=== PATIENT | male | born 1960 | race Caucasian/White ===

== ENCOUNTER 2021-02-13 08:29 | Outpatient (CLI) | payer OTHER, SELFPAY | END 2021-02-13 08:30 | LOC: ANHCOVIDVC 08:30 | PROVIDERS: PCP Family Medicine | DX: Z23 Encounter for immunization (principal) | CPT/HCPCS: 0001A; 91300 ==

== ENCOUNTER 2021-03-06 08:34 | Outpatient (CLI) | payer SELFPAY | END 2021-03-06 08:35 | disposition home or self-care (01) | LOC: ANHCOVIDVC 08:34 | PROVIDERS: PCP Family Medicine | DX: Z23 Encounter for immunization (principal) | CPT/HCPCS: 0002A; 91300 ==

== ENCOUNTER 2024-01-17 15:12 | Emergency (ER) | payer MEDICARE, SELFPAY ==
--- NOTE | ~2024-01-17 | XR_ITS ---
EXAMINATION: XR chest 1V portable Exam Date/Time: 01/17/2024 15:35 CRANE ENGINEER HISTORY: htn WITH LEFT ARM NUMBNESS AND TINGLING INTERMITTENT Comparison: CT chest 11/16/2018. RESULT: Lines, tubes, and devices: None. Lungs and pleura: Clear. Cardiomediastinal silhouette: Unremarkable. Other: No acute osseous or upper abdominal finding. IMPRESSION: No acute cardiopulmonary process. Reviewed, dictated and finalized at location K. E ENGINEER
--- NOTE | ~2024-01-17 | CT_ITS ---
EXAMINATION: CTA brain carotid DATE: 01/17/2024 17:01 INDICATION: neuro deficit TECHNIQUE: Computed tomographic angiography (CTA) of the head was performed without and with 100 mL O mnipaque-350 intravenous contrast. CTA of the neck was performed with intravenous contrast. Automated exposure control and iterative reconstruction technique were employed. The dose-length product was 1 821.09 mGy-cm. Maximum intensity projection and volume rendered 3D-reconstructions were created by ramila cole technologist on a separate workstation. COMPARISON: None. FINDINGS: CT BRAIN: No acute large vessel infarct, intracranial hemorrhage, mass, or hydrocephalus. CTA HEAD: No large vessel occlusion, aneurysm, high flow vascular malformation, nidus or extravasation. Symmetr ic parenchymal enhancement. Patent cerebral veins. CTA NECK: Aortic arch and proximal great vessels: Minimal arch calcifications. 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 Right common carotid, carotid bifurcation, and internal carotid artery: Calcified and noncalcified pl aque at the bifurcation.There is 0% stenosis of the proximal right internal carotid artery relative t o normal distal artery lumen diameter (NASCET criteria). Vertebral arteries: No significant plaque or stenosis. Other findings: None. IMPRESSION: No large vessel intracranial occlusion, high-grade intracranial stenosis, or aneurysm. No carotid or vertebral artery occlusion or dissection. Ulcerative plaque at the left carotid bifurcation, with 63% stenosis. Reviewed, dictated and finalized at location K. ICAL STAFF ANESTHESIOLOGIST IMPRESSION: No large vessel intracranial occlusion, high-grade intracranial stenosis, or an eurysm. No carotid or vertebral artery occlusion or dissection. Ulcerative plaque at the left carotid bifurcation, with 63% stenosis.
[2024-01-17 15:21] VITALS: BP 207/135; PULSE 96; RESP 20; TEMP 36.4; O2SAT 99
--- NOTE | 2024-01-17 15:26 | ECG_ITS ---
Measurements Intervals [place] Rate: 90 P: 44 MT: 168 QRS: -29 QRSD: 119 T: -7 QT: 348 QTc: 426 Interpretive Statements SINUS RHYTHM LEFT ANTERIOR SUPERIOR HEMIBLOCK INCOMPLETE RIGHT BUNDLE BRANCH BLOCK [90+ ms QRS DURATION, TERMINAL R IN V1/V2, 40+ ms S IN I/aVL/V4/V5/V6] ABNORMAL ECG NO PREVIOUS ECG AVAILABLE FOR COMPARISON Electronically Signed On 01-18-2024 8:11:34 PRICE CHECKER by Travis Ochoa M.D.
[2024-01-17 15:48] LABS: Basophils Absolute Auto 0.1 K/mm3 (0.0-0.1); Basophils Percent Auto 1.2 % (0.2-1.2); Eosinophils Absolute Auto 0.1 K/mm3 (0-0.3); Eosinophils Percent Auto 1.5 % (0-4.4); Hematocrit 51.6 % (42.0-52.0); Hemoglobin 17.3 g/dL (14.0-18.0); Immature Granulocyte Absolute 0.02 K/mm3 (0.00-0.031); Immature Granulocyte Percent A 0.3 % (0-0.5); Lymphocytes Absolute Auto 1.03 K/mm3 (0.9-3.2); Lymphocytes Percent Auto 17.1 % (18.3-44.2); Mean Corpuscular HGB Conc 33.5 g/dl (32-36); Mean Corpuscular Hemoglobin 31.2 pg (26-34); Monocytes Absolute Auto 0.9 K/mm3 (0.1-0.6); Monocytes Percent Auto 14.8 % (2.6-8.5); Neutrophils Absolute Auto 3.9 K/mm3 (1.3-6.7); Neutrophils Percent Auto 65.1 % (45.5-73.1); Platelet Count Result 161 k/mm3 (150-375); Red Blood Count 5.55 M/mm3 (4.6-6.20)
[2024-01-17 16:00] VITALS: BP 162/115; PULSE 87; RESP 18; O2SAT 98
[2024-01-17 16:00] LABS: Alanine Aminotransferase 39 U/L (6-50); Albumin Level 4.4 g/dL (3.5-5.1); Alkaline Phosphatase 86 U/L (38-126); Anion Gap 6 mmol/L (8-16); Aspartate Amino Transferase 51 U/L (17-59); Bilirubin,Total 0.8 mg/dL (0.2-1.3); Blood Urea Nitrogen 15 mg/dL (9-20); Calcium 9.3 mg/dL (8.4-10.2); Carbon Dioxide 25 mmol/L (22-30); Chloride 106 mmol/L (98-107); Estimated CRCL calculation 70 ml/min; Estimated Glomerular Filt Rate > 60; Glucose 86 mg/dL (65-110); Lipase 85 U/L (23-300); Sodium 137 mmol/L (137-145)
--- NOTE | 2024-01-17 16:02 | ED.NEUROSD ---
HPI - Neuro Symptoms/Deficit General Chief Complaint: Neuro Symptoms/Deficit Stated Complaint: neuro sx Time Seen by Provider: 01/17/24 16:00 History of Present Illness HPI Narrative: Patient is a 63-year-old male with history of HTN, not on medications, here with headache, left sided tingling and high blood pressure. He notes that about a week ago he began having symptoms like his blood pressure was high. He describes it as feeling a pressure-like sensation in his head when he bends over. Last Saturday he began having symptoms of left arm, left buttock pins and needles sensation. He notes that it occurred 4-5 times that day and yesterday had 2 similar episodes. Currently he is just complaining of a mild headache. No pins and needle sensation are present. He denies any current chest pain. He spoke with his primary care doctor's office Dr. Harris today and they recommended he come into the emergency department for evaluation and workup. He notes that he had been treated for hypertension several years ago, he claims that and the blood pressure medications that he had been placed on were working. He discontinued them and manage his diet and has had good blood pressure control since. Related Data Allergies Allergy/AdvReac Type Severity Reaction Status Date / Time No Known Allergies Allergy Verified 01/17/24 15:12 Review of Systems Review of Systems: All systems reviewed & are unremarkable except as noted in HPI and below PMFSH Family History Family History (Updated 11/04/18 @ 13:45 by DOCTOR UNKNOWN) Father Diabetes mellitus Mother Patient's mother is in good health Sibling Patient's sister is in good health Social History Social History Smoking status: Never smoker Alcohol intake: current Exam Narrative: GENERAL: Well-appearing, well-nourished, and in no acute distress. HEAD: Normocephalic, atraumatic. EYES: PERRLA and EOMI. ENT: Nares clear. Mucous membranes moist. NECK: Supple. CHEST: Clear to auscultation. No respiratory distress. HEART: Regular rate and rhythm. Normal peripheral pulses. ABDOMEN: Soft, nontender, nondistended. EXTREMITIES: Normal range of motion. No edema. SKIN: Warm, dry, no rash. NEURO: No focal deficits. Alert and oriented x3. No upper or lower extremity drift. no facial droop. Normal [id number]-fl-[id number]. Normal sensation over face, bilateral upper lower extremities. PSYCH: Normal mood and affect. Course Course Emergency Course: Chart review performed. Patient here with intermittent left sided tingling since Saturday, none now. Triage BP 207/135. Patient seen evaluated, nontoxic appearing. Concern for symptomatic hypertension. BP has improved without intervention here. Spoke with patient's PCP Dr. Crenshaw, recommends starting losartan or lisinopril, can see him in the office on Saturday pending workup is unremarkable. Dose ordered here. Pending imaging. Lab work and imaging reviewed, CBC within normal limits, CMP within normal limits, initial troponin negative. CT head and CTA head and neck shows ulcerative plaque of left carotid bifurcation with 63% stenosis. Repeat troponin negative. Patient re-evaluated, continues to feel well. Will start patient on losartan. He is advised follow-up with his primary care doctor, she believes she can get him in on Saturday. All questions and concerns have been answered. He can discuss his carotid stenosis with his primary care doctor for further workup and treatment plan. The results of pertinent diagnostic studies and exam findings were discussed. The patient?s provisional diagnosis and plan of care were discussed with the patient and present family. The patient and/or present family expressed understanding of the diagnosis and plan. The nurse was instructed to provide written instructions and appropriate follow-up information. The patient understands their need and responsibility to obtain additional follow-up as instructed. The risk
[2024-01-17 16:10] LABS: Troponin I < 0.012 ng/mL (0.000-0.034)
[2024-01-17 17:00] VITALS: BP 188/106; PULSE 92; RESP 16; TEMP 36.7; O2SAT 98
--- NOTE | 2024-01-17 17:32 | PC.NURSE ---
denies pain at this time so refuses acetaminophen
[2024-01-17 18:00] VITALS: BP 182/98; PULSE 87; RESP 16; TEMP 36.6; O2SAT 97
[2024-01-17] MEDS: LOSARTAN POTASSIUM 25 MG TABLET PO (18:08)
[2024-01-17 18:30] VITALS: BP 167/108; PULSE 87; RESP 16; O2SAT 98
--- NOTE | 2024-01-17 18:52 | ECG_ITS ---
Measurements Intervals [place] Rate: 84 P: 43 TN: 168 QRS: -33 QRSD: 121 T: -8 QT: 383 QTc: 454 Interpretive Statements SINUS RHYTHM INCOMPLETE RIGHT BUNDLE BRANCH BLOCK LEFT ANTERIOR SUPERIOR HEMIBLOCK ABNORMAL ECG COMPARED TO ECG 01/17/2024 15:33:26 NO DIFFERENCE Electronically Signed On 01-18-2024 8:17:50 TELLER SUPERVISOR by Travis Ochoa M.D.
[2024-01-17 19:17] LABS: Troponin I < 0.012 ng/mL (0.000-0.034)
[2024-01-17 20:00] VITALS: BP 182/117; PULSE 90; RESP 19; O2SAT 98
== END 2024-01-17 20:01 | disposition home or self-care (01) ==
PROVIDERS: Emergency Medicine; Emergency Provider Student in an Organized Health Care Education/Training Program; PCP Family Medicine
DX: R51.9 Headache, unspecified (principal); I10 Essential (primary) hypertension; R20.2 Paresthesia of skin; I45.2 Bifascicular block
CPT/HCPCS: 36415; 70496; 70498; 71045; 80053; 83690; 84484; 85025; 85610; 85730; 93005; 99284; A9270; Q9967

== ENCOUNTER 2024-04-06 09:38 | Outpatient (CLI) | payer MEDICARE, SELFPAY ==
--- NOTE | ~2024-04-06 | MR_ITS ---
EXAMINATION: MR cervical spine wo con DATE: 04/06/2024 10:30 INDICATION: Brachial plexus disorder. Cervical radiculopathy. TECHNIQUE: Magnetic resonance imaging (MRI) of the cervical spine was performed without intravenous c ontrast. COMPARISON: None FINDINGS: There is 9 degrees levocurvature of the cervicothoracic spine. There is kyphosis of cervica l spine. There is 2 mm anterolisthesis of C4 on C5. There is mild chronic anterior wedging of T1 vert ebral body. There is severely decreased disc height at C5-C6 and C6-C7. The spinal cord signal intens ity is normal. The following disc levels are specifically discussed: C2-C3: The disc does not extend beyond the endplate margin. There is ankylosis of the uncovertebral j oints without hypertrophy. There is ankylosis of the facet joints with mild hypertrophy. There is mil d left neural foraminal stenosis. There is no central canal stenosis. C3-C4: The disc does not extend beyond the endplate margin. There is ankylosis of the uncovertebral j oints with mild hypertrophy. There is mild right facet joint osteoarthritis. There is ankylosis of th e left facet joint with moderate hypertrophy. There is mild left neural foraminal stenosis. There is no central canal stenosis. C4-C5: The disc is bulging. There is mild right and severe left uncovertebral joint osteoarthritis. T here is mild right and severe left facet joint osteoarthritis. There is mild right and severe left ne ural foraminal stenosis. There is mild central canal stenosis. C5-C6: The disc is bulging. There is severe bilateral uncovertebral joint osteoarthritis. There is no facet joint osteoarthritis. There is mild right and moderate left neural foraminal stenosis. There i s mild central canal stenosis. C6-C7: The disc is bulging. There is severe bilateral uncovertebral joint osteoarthritis. There is mo derate bilateral facet joint osteoarthritis. There is mild right and moderate left neural foraminal s tenosis. There is mild central canal stenosis. C7-T1: The disc does not extend beyond the endplate margin. There is mild bilateral uncovertebral sharad nt osteoarthritis. There is severe bilateral facet joint osteoarthritis. There is mild left neural fo raminal stenosis. There is no central canal stenosis. IMPRESSION: 1. Severe cervical spondylosis. Reviewed, dictated and finalized at location A.
== END 2024-04-06 09:39 | disposition home or self-care (01) ==
PROVIDERS: PCP Family Medicine; Visit Provider Family Medicine
DX: G54.0 Brachial plexus disorders (principal); M43.02 Spondylolysis, cervical region
CPT/HCPCS: 72141

== ENCOUNTER 2025-02-10 08:13 | Outpatient (CLI) | payer MEDICARE, SELFPAY ==
--- OUTSIDE RECORDS SUMMARY | 2025-02-10 08:28 | XMS_ITS | Referral Summary ---
Author Organization [facility] [address] Address [address] [place] [address] Care Team Providers Care Lithographic Photographer Apprentice Name Role Phone Kimberly Lynn MD Primary Care Provider Allergies No known active allergies Medications testosterone cypionate (DEPO-TESTOTERO NE) 200 mg/mL injectionIndica tions:Androgen Deficiency Inject 1 mL (200 mg total) into the muscle as instructed once a week 0 10/08/20 18 Active aspirin 81 mg tabletIndicatio ns:New-onset angina Take 1 tablet (81 mg total) by mouth daily. 30 tablet 11/07/20 18 Active Additional Information Patient taking differently:81 mg oralEvery morning, Indications: prevention of thrombosis, Informant: Self, Reported on 02/27/2024 nitroglycerin (NITROSTAT) 0.[address] 1 tablet (0.4 mg total) under the tongue every 5 (five) minutes as needed for chest pain. May repeat dose q 5 min, up to 3 doses total 25 tablet 11/07/20 18 Active Additional Information Patient taking differently:0.4 mg sublingual Every 5 min PRN, chest pain, May repeat dose q 5 min, up to 3 doses total,Indications: acute episode of anginal pain, Informant: Self, Reported on 02/27/2024 clopidogreL (PLAVIX) 75 mg tablet Take 1 tablet (75 mg total) by mouth daily 30 tablet 02/18/20 24 025 Active Additional Information Patient taking differently:75 mg oralEvery morning, Indications: Peripheral Arterial Thromboembolism Prevention, TCAR stent to be placed 03/24/24, Informant: Self, Reported on 02/27/2024 irbesartan (AVAPRO) 150 mg tabletIndicatio ns:hypertension Take 1 tablet (150 mg total) by mouth daily before breakfast Active MULTIVITAMIN ORALIndications :Supplement Take 1 tablet by mouth every morning Activ e cholecalciferol , vitamin D3, (VITAMIN D3 ORAL)Indication s:Supplement Take 1 tablet by mouth every morning Activ e omega-3 fatty acids/fish oil (OMEGA 3 FISH OIL ORAL)Indication s:Supplement Take 1 tablet by mouth every morning Activ e acetaminophen-a spirin-caffeine (Excedrin Extra Strength) 250-250-65 mg per tabletIndicatio ns:Headache Disorder,Pain Take 1 tablet by mouth every 8 (eight) hours as needed for headaches or pain Active atorvastatin (LIPITOR) 40 mg tabletIndicatio ns:Preop examination Take 1 tablet (40 mg total) by mouth daily 30 tablet 1 03/09/20 24 Active Active Problems Problem Noted Date Diagnosed Date Left carotid stenosis 02/18/2024 Chest pain at rest 11/07/2018 Essential hypertension 11/07/2018 Obstructive sleep apnea 11/07/2018 Hyperlipidemia 11/07/2018 New-onset angina 11/07/2018 Social History Tobacco Use Types Packs/Day Years Used Date Smoking Tobacco: Never Passive Smoke Exposure: Past Smokeless Tobacco: Never Tobacco Cessation:Counseling Given: Not Answered Alcohol Use Standard Drinks/Week Comments Yes 4 (1 standard drink = 0.6 oz pur e alcohol) AUDIT-C Answer Date Recorded Q1: How often do you have a drink containing alc ohol? 2-3 times a week 02/27/2024 Q2: How many drinks containi ng alcohol do you have on a typical day when you are drinking? 1 or 2 02/27/2024 Q3: How often do you have si x or more drinks on one occasion? Never 02/27/2024 Personal Safety Answer Date Recorded Have you ever been in or are you currently in a harmful physical or emotional relationship or is someone making you feel afraid or unsafe? 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 Gender Identity Male 02/18/2019 7:01 AM CDT Sexual Orientation Straight 02/18/2019 7: 02 AM CDT Last Filed Vital Signs Vital Sign Reading Time Taken Comments Blood Pressure 122/78 02/27/2024 10:20 AM CDT Pulse 94 02/27/2024 10:00 AM CDT Temperature - - Respiratory Rate 16 02/27/2024 10:0 0 AM CDT Oxygen Saturation 96% 02/27/2024 10: 00 AM CDT Inhaled Oxygen Concentration - - Weight 103.2 kg (227 lb 8.2 oz) 024 10:00 AM CDT Height 188 cm (6' 2 ) 02/27/2024 10:00 AM CDT Body Mass Index 29.21 02/27/2024 10:00 AM CDT Plan of Treatment Not on file Insurance [facility] [place] [employer] MEDIC[facility] HMO [employer]ARE [id number] Care Teams Lithographic Photographer Apprentice Relationship Specialty Start Date End Date Kimberly Lynn MD [address] [facility] [address] [place] [address] PCP - General Family Medicine 11/05/18
--- OUTSIDE RECORDS SUMMARY | 2025-02-10 08:28 | XMS_ITS | Clinical Summary ---
Author Organization [facility] [address] Address [address] [place] [address] Care Team Providers Care Community Product Specialist Name Role Phone Kimberly Lynn MD Primary [...] apnea 11/07/2018 Hyperlipidemia 11/07/2018 New-onset angina 11/07/2018 Surgical History Surgery Date Site/Laterality Comments TONSILLECTOMY 12/02/1962 - 12/01/1963 Medical History Medical History Date Comments Hypertension Sleep apnea Family History Medical History Relation Name Comments Stroke Father No Known Problems Mother Relation Name Status Comments Father (Age 82) Mother Alive Sister Alive Social History Tobacco Use Types Packs/Day Years [...] AM CDT 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 Gender Identity Male 02/18/2019 7:01 AM CDT Sexual Orientation Straight 02/18/2019 7: 02 AM CDT Obstetrics History Last Filed Vital Signs Vital Sign Reading [...] 02/27/2024 10:00 AM CDT Plan of Treatment Health Maintenance Due Date Last Done Comments Colon Cancer Screening-Colonoscopy 1959 Depression Screening 1959 Hepatitis C Screening 1959 Prostate Cancer Screening-PSA 1959 DTaP/Tdap/Td Vaccine (1 - Tdap) 1970 Hepatitis B Screening 1977 Pneumococcal vaccine 65+ (1 of 1 - PCV) 2009 Zoster Vaccine (1 of 2) 2009 Well Visit 65+ 2024 Covid-19 Vaccine ( season) 08/02/202404/2021, 02/13/2021 Influenza Vaccine (#1) 2024 Fall Risk Assessment 02/26/2025 02/27/2024 Insurance [place] [employer] PPO [place] [employer] MEDICARE HMO [employer] MEDICARE [id number] Care Teams Community Product Specialist Relationship Specialty Start Date End Date Kimberly Lynn MD [address] [facility] [address] [place] [address] PCP - General Family Medicine 11/05/18
[2025-02-10 08:43] LABS: Basophils Absolute Auto 0.1 K/mm3 (0.0-0.1); Basophils Percent Auto 1.1 % (0.2-1.2); Eosinophils Absolute Auto 0.1 K/mm3 (0-0.3); Eosinophils Percent Auto 1.7 % (0-4.4); Hemoglobin 18.2 g/dL (14.0-18.0); Immature Granulocyte Absolute 0.01 K/mm3 (0.00-0.031); Immature Granulocyte Percent A 0.2 % (0-0.5); Lymphocytes Absolute Auto 0.91 K/mm3 (0.9-3.2); Lymphocytes Percent Auto 16.9 % (18.3-44.2); Mean Corpuscular HGB Conc 34.3 g/dl (32-36); Mean Corpuscular Hemoglobin 32.1 pg (26-34); Mean Corpuscular Volume 93.5 fl (80-100); Mean Platelet Volume 12.1 fl (7.4-10.4); Monocytes Absolute Auto 0.9 K/mm3 (0.1-0.6); Monocytes Percent Auto 16.4 % (2.6-8.5); Neutrophils Absolute Auto 3.4 K/mm3 (1.3-6.7); Neutrophils Percent Auto 63.7 % (45.5-73.1); Platelet Count Result 185 k/mm3 (150-375); Red Blood Count 5.67 M/mm3 (4.6-6.20); Red Cell Distribution Width 13.1 % (11.5-14.5); White Blood Count 5.4 K/mm3 (4.5-10.0)
[2025-02-10 09:04] LABS: Alanine Aminotransferase 49 U/L (6-50); Albumin Level 4.6 g/dL (3.5-5.1); Alkaline Phosphatase 99 U/L (38-126); Anion Gap 8 mmol/L (4-12); Aspartate Amino Transferase 36 U/L (17-59); Bilirubin,Total 1.3 mg/dL (0.2-1.3); Blood Urea Nitrogen 15 mg/dL (9-20); Calcium 9.4 mg/dL (8.4-10.2); Carbon Dioxide 26 mmol/L (22-30); Chloride 106 mmol/L (98-107); Cholesterol 207 mg/dL (0-200); Estimated Glomerular Filt Rate > 60; Glucose 108 mg/dL (65-110); HDL Direct 46 mg/dL; Potassium 4.5 mmol/L (3.4-5.0); Sodium 140 mmol/L (137-145); Triglycerides 131 mg/dL (<150)
[2025-02-10 09:15] LABS: LDL Cholesterol Direct 116 mg/dL
== END 2025-02-10 08:14 | disposition home or self-care (01) ==
PROVIDERS: PCP Family Medicine; Visit Provider Student in an Organized Health Care Education/Training Program
DX: E78.5 Hyperlipidemia, unspecified (principal); I10 Essential (primary) hypertension
CPT/HCPCS: 36415; 80053; 80061; 85025

== ENCOUNTER 2025-04-19 09:39 | Emergency (ER) | payer MEDICARE, SELFPAY ==
[2025-04-19 09:44] VITALS: BP 173/102; PULSE 98; RESP 16; TEMP 36.9; O2SAT 100
--- NOTE | 2025-04-19 10:27 | ED_ITS ---
HPI - Ear Problem General Chief complaint: Ear Stated complaint: Ear Pain Time Seen by Provider: 04/19/25 10:20 Source: patient and RN notes reviewed Mode of arrival: ambulatory Limitations: no limitations History of Present Illness HPI Narrative: 65-year-old male presents Express Care complaining of left ear pain for 2 weeks. Patient states that 2 weeks ago he had upper respiratory infection. Patient report and fevers, congestion the, cough, and left ear pain. She said most of his symptoms have resolved except he has continues to have left ear pain and muffled hearing. Patient denies any discharge from his ear. Patient denies any chest pain shortness of breath. Denies any significant past medical history other than hypertension. Related Data Home Medications Medication Instructions Recorded Confirmed Last Taken Type anastrozole 1 mg tablet 1 mg PO DAILY 04/17/24 02/10/25 Unknown History testosterone enanthate 200 mg/mL 200 mg IM WEEKLY 04/17/24 02/10/25 Unknown History intramuscular syringe Allergies Allergy/AdvReac Type Severity Reaction Status Date / Time No Known Allergies Allergy Verified 04/19/25 10:03 Review of Systems Review of Systems: CONSTITUTIONAL: Denies fever, chills, body aches, or sweats. EYES: Denies visual changes, redness, or discharge. ENT: Negative for rhinorrhea, congestion, sore throat. Positive for otalgia. CARDIOVASCULAR: Denies chest pain, palpitations, or edema. RESPIRATORY: Negative for coughing and dyspnea. GASTROINTESTINAL: Denies abdominal pain, nausea, vomiting, or diarrhea. GENITOURINARY: Denies dysuria or hematuria. SKIN: Denies rash or itching. MUSCULOSKELETAL: Denies back pain, joint pain, or myalgia. NEUROLOGIC: Denies headache, numbness, or weakness. PSYCHIATRIC: Denies anxiety or depression. All other systems reviewed are negative, except as documented in HPI. [facility] Past Medical History Medical History Elevated BP without diagnosis of hypertension PADMINI (obstructive sleep apnea) Mixed hyperlipidemia Long-term current use of testosterone replacement therapy Essential (primary) hypertension Chest pain at rest Acquired pancytopenia Family History Family History Father Diabetes mellitus Mother Patient's mother is in good health Sibling Patient's sister is in good health Social History Social History Social History: Smoking status: Never smoker Second hand tobacco smoke exposure: No Alcohol intake: current Alcohol use details: Occasionally Substance use: never Substance use type: does not use Do You Feel Safe in your Home?: Yes Lack of Transportation: No Lack of Food: Never True Current Housing: I Have Housing Concerned About Future Housing: No Difficulty Paying Gas/Electric Bills: No Difficulty Paying for Meds: No Currently Unemployed: No Education: Don't Know Difficulty w/ Childcare or Family Care: No Living arrangements: alone Occupation/Education: retired Gender identity (if verbalized by the patient): Male Sexual Orientation (if Verbalized by the Patient): Straight or Heterosexual Comments At the time of my signature, I reviewed and agree with the nursing past medical, surgical, social, and family history. There is no relevant family history perti nent to the patient complaint. Exam Narrative: GENERAL: This is a well-nourished, well-developed adult, in no apparent distress. They are non ill-appearing, nontoxic appearing. HEAD: normocephalic, atraumatic. EYES: Sclera clear/white. Vision is grossly intact. Conjunctiva normal bilaterally. Extraocular movements intact. EARS: External ears normal, auditory canals clear and without drainage, right TMs without erythema or perforation. Left TM is erythematous and bulging. Left TM without perforation. Hearing grossly intact. NOSE: External nose normal with no obvious nasal discharge, nasal turbinates without redness or swelling, no rhinorrhea. THROAT: Mucous membranes moist, posterior pharynx without redness or swelling, no exudate. Uvula is midline. NECK: Neck supple, non-tender without lymphadenopathy, masses or thyromegaly. CARDIOVASCULAR: Regular rate and rhythm without murmurs, gallops, or rubs. RESPIRATORY: Clear to auscultation. Breath sounds equal bilaterally. No wheezes, rales, or rhonchi. SKIN: warm, Dry, intact with no suspicious lesions or rash, good texture and turgor. NEURO: awake, alert, and oriented to person, place and time. There were no obvious focal neurologic abnormalities. EXTREMITIES: No joint tenderness, effusion, or edema noted. BACK: Nontender without deformity. Course Course Emergency Course: Portions of this record may have been created with voice recognition software Level of Care: Express Care Visit Vital Signs Vital signs: Vital Signs Temperature 98.5 F 04/19/25 09:44 Pulse Rate 98 04/19/25 09:44 Respiratory Rate 16 04/19/25 09:44 Blood Pressure 173/102 H 04/19/25 09:44 Pulse Oximetry 100 04/19/25 09:44 Oxygen Delivery Room Air 04/19/25 09:44 Temperature 98.5 F 04/19/25 09:44 Pulse Rate 98 04/19/25 09:44 Respiratory Rate 16 04/19/25 09:44 Blood Pressure 173/102 H 04/19/25 09:44 Pulse Oximetry 100 04/19/25 09:44 Oxygen Delivery Room Air 04/19/25 09:44 Medical Decision Making MDM Narrative Medical decision making narrative: Patient has a left otitis media. Will treat empirically with amoxicillin. Discussed physical exam findings. Advised supportive measures and signs/symptoms to go to the ER. Pt is appropriate for outpt treatment and f/u. Differential Diagnosis Differential Diagnosis: Upper respiratory infection, sinusitis, otitis media. Vital Signs Vital Signs: Vital Signs Temperature 98.5 F 04/19/25 09:44 Pulse Rate 98 04/19/25 09:44 Respiratory Rate 16 04/19/25 09:44 Blood Pressure 173/102 H 04/19/25 09:44 Pulse Oximetry 100 04/19/25 09:44 Oxygen Delivery Room Air 04/19/25 09:44 Temperature 98.5 F 04/19/25 09:44 Pulse Rate 98 04/19/25 09:44 Respiratory Rate 16 04/19/25 09:44 Blood Pressure 173/102 H 04/19/25 09:44 Pulse Oximetry 100 04/19/25 09:44 Oxygen Delivery Room Air 04/19/25 09:44 Discharge Plan Discharge Clinical Impression: Otitis media Qualifiers: Otitis media type: suppurative Chronicity: acute Laterality: left Recurrence: non-recurrent Spontaneous tympanic membrane rupture: without spontaneous rupture Qualified Code(s): H66.002 - Acute suppurative otitis media without spontaneous rupture of ear drum, left ear Patient Disposition: Home Condition: Stable Instructions: Antibiotic Form, Ear Infection (ED) Additional Instructions: Take antibiotics as directed. Recommend antihistamine such as Claritin, Zyrtec or Triny for sinus congestion Flonase nasal spray, 1 spray in each nostril once daily until symptoms improve Symptomatic treatment includes: rest, fluids, and increase humidity of the air at home. You may take Tylenol ibuprofen as needed for pain or fevers. Please schedule a follow-up visit with your personal physician for further evaluation and treatment within 3-5days. If your symptoms persist, change or worsen significantly, go to the emergency department for further evaluation. Your blood pressure was elevated above 120/80 today at urgent care. This puts you above the threshold for follow-up. Please schedule a follow-up with your [facility] physician as soon as possible for further evaluation and treatment even blood pressures exceeding 120/80 may indicate pre-hypertension. Patient Language: Turkish Prescriptions: New amoxicillin 875 mg tablet 875 mg PO Q12H 7 Days Qty: 14 0RF No Action anastrozole 1 mg tablet 1 mg PO DAILY testosterone enanthate 200 mg/mL syringe 200 mg IM WEEKLY Rx Instructions: as a single dose nifedipine 30 mg tablet extended release 30 mg PO DAILY Qty: 30 2RF irbesartan 300 mg tablet 300 mg PO DAILY Qty: 90 1RF Follow-up/Referrals: Tanmay Cabrera DO [Primary Care Provider] - Time of Disposition: 10:25
== END 2025-04-19 10:35 | disposition home or self-care (01) ==
PROVIDERS: PCP Internal Medicine
DX: H66.002 Acute suppurative otitis media without spontaneous rupture of ear drum, left ear (principal); E78.2 Mixed hyperlipidemia; I10 Essential (primary) hypertension
CPT/HCPCS: 99213; G0463